=== PATIENT | male | born 1985 | race American Indian/Alaskan Native ===

== ENCOUNTER 2021-04-11 13:28 | Emergency (ER) | payer SELFPAY ==
[2021-04-11] MEDS ORDERED: SODIUM CHLORIDE 0.9% 1000 ML 1,000 ML IV ONE ×2 (13:34→13:50)
[2021-04-11] MEDS ORDERED: EPINEPHrine/PF 1 MG/1 ML INJ ONE (13:36)
[2021-04-11] MEDS ORDERED: EPINEPHrine/PF 1 MG/1 ML INJ SUB-Q ONE (13:36)
[2021-04-11] MEDS ORDERED: diphenhydrAMINE 50 MG/ML VIAL IV ONE (13:50)
[2021-04-11] MEDS ORDERED: FAMOTIDINE 20 MG/2 ML INJ IV ONE ×2 (13:50)
[2021-04-11] MEDS ORDERED: diphenhydrAMINE 50 MG/ML VIAL ONE (13:50)
[2021-04-11] MEDS ORDERED: methylPREDNISolone Sod Succinate 125 MG/2 ML INJ IV ONE (13:50)
--- NOTE | 2021-04-11 13:57 | Emergency Department Report ---
ED General Adult HPI - General Chief complaint: Allergic Reaction Stated complaint: ALLERGIC REACTION Time Seen by Provider: 04/11/21 13:33 Source: patient Mode of arrival: Ambulatory Limitations: No Limitations - History of Present Illness Initial comments: The patient presents to the emergency department the chief complaint of swelling of his lips and difficulty breathing after being stung by bees. Patient states he is not aware of any previous allergies to bee stings states he has been stung by bees multiple times in the past. Patient complains difficulty breathing and swollen tongue but is able to phonate without issue. Patient does have mild difficulty swallowing. -: Sudden Severity scale (0 -10): 0 Consistency: constant Improves with: none Worsens with: none Associated Symptoms: denies other symptoms Treatments Prior to Arrival: none - Related Data Previous Rx's Medication Instructions Recorded Last Taken Type EPINEPHrine [Epipen 2-Primo] 0.3 mg IJ ONCE #1 auto.injct 04/11/21 Unknown Rx predniSONE [Deltasone] 20 mg PO DAILY #15 tablet 04/11/21 Unknown Rx Allergies Allergy/AdvReac Type Severity Reaction Status Date / Time No Known Allergies Allergy Unverified 04/11/21 13:37 ED Review of Systems ROS: Stated complaint: ALLERGIC REACTION Other details as noted in HPI Constitutional: denies: chills, fever Eyes: denies: eye pain, eye discharge, vision change ENT: denies: ear pain, throat pain Respiratory: shortness of breath. denies: cough, wheezing Cardiovascular: denies: chest pain, palpitations Endocrine: no symptoms reported Gastrointestinal: denies: abdominal pain, nausea, diarrhea Genitourinary: denies: urgency, dysuria Musculoskeletal: denies: back pain, joint swelling, arthralgia Skin: denies: rash, lesions Neurological: denies: headache, weakness, paresthesias Psychiatric: denies: anxiety, depression Hematological/Lymphatic: denies: easy bleeding, easy bruising ED Past Medical Hx - Past Medical History Previous Medical History?: No - Surgical History Past Surgical History?: No - Medications Home Medications: Home Medications Medication Instructions Recorded Confirmed Last Taken Type EPINEPHrine [Epipen 2-Primo] 0.3 mg IJ ONCE #1 auto.injct 04/11/21 Unknown Rx predniSONE [Deltasone] 20 mg PO DAILY #15 tablet 04/11/21 Unknown Rx ED Physical Exam - General Limitations: No Limitations General appearance: alert, other (In mild distress) - Head Head exam: Present: atraumatic, normocephalic - Eye Eye exam: Present: normal appearance - ENT ENT exam: Present: mucous membranes dry, other (Swelling of the upper and lower lips) - Neck Neck exam: Present: normal inspection - Respiratory Respiratory exam: Present: respiratory distress (Mild respiratory distress), decreased breath sounds - Cardiovascular Cardiovascular Exam: Present: normal rhythm, tachycardia. Absent: systolic murmur, diastolic murmur, rubs, gallop - GI/Abdominal GI/Abdominal exam: Present: soft, normal bowel sounds - Rectal Rectal exam: Present: deferred - Extremities Exam Extremities exam: Present: normal inspection - Back Exam Back exam: Present: normal inspection - Neurological Exam Neurological exam: Present: alert, oriented X3, CN II-XII intact. Absent: motor sensory deficit - Psychiatric Psychiatric exam: Present: normal affect, normal mood - Skin Skin exam: Present: warm, dry, intact, normal color, urticaria (Urticaria of the trunk, back, neck) ED Course Vital Signs 04/11/21 04/11/21 13:34 13:37 Temperature 98.1 F Pulse Rate 103 H 126 H Respiratory 16 Rate Blood Pressure 124/80 78/53 [Left] O2 Sat by Pulse 92 93 Oximetry ED Medical Decision Making - Medical Decision Making Patient received IV Solu-Medrol, IV Pepcid, IV Benadryl as well as subcu epinephrine Patient observed in ED for greater than 4 hours without signs or rebound Patient's urticaria and swelling of his lips improved and had no difficulty swallowing or speaking while in the emergency department Critical Care Time: Yes Critical care time in (mins) excluding proc time.: 35 Critical care attestation.: If time is entered above; I have spent that time in minutes in the direct care of this critically ill patient, excluding procedure time. ED Disposition Clinical Impression: Allergic reaction, Sting, wasp Disposition: DC-01 TO HOME OR SELFCARE Is pt being admited?: No Does the pt Need Aspirin: No Condition: Stable Instructions: Allergies, Adult, Bee, Wasp, or Hornet Sting, Adult Additional Instructions: return if worse Prescriptions: EPINEPHrine [Epipen 2-Primo] 0.3 mg IJ ONCE #1 auto.injct Referrals: PRIMARY CARE, [Primary Care Provider] - 3-5 Days KAITY NGO MD [Staff Physician] - 3-5 Days Time of Disposition: 17:49
[2021-04-11] MEDS ORDERED: ONDANSETRON 4 MG ODT TAB PO ONE (16:17)
[2021-04-11 19:28] VITALS: BP 116/73
== END 2021-04-11 18:21 | disposition home or self-care (01) ==
LOC: ED 13:28
DX: T63.461A Toxic effect of venom of wasps, accidental (unintentional), initial encounter (principal); Z79.899 Other long term (current) drug therapy; X58.XXXA Exposure to other specified factors, initial encounter
CPT/HCPCS: 96361; 96372; 96374; 96375; 99282; J0171; J1200; J7030